=== PATIENT | female | born 1980 | race Caucasian/White ===

== ENCOUNTER → 2017-05-24 | Outpatient (CLI) | payer OTHER ==
[2016-07-30 12:46] VITALS: BP 100/44
--- NOTE | 2017-05-24 14:46 | Diagnostic Imaging Report ---
ROSIE BRANDON (ETL ARCHITECT) - OP [facility] [address] [facility].[address] [address] Report Submission Date: May 24, 2017 2:36:31 PM CDT Patient Study Name: ANDREA BOSTON Date: May 24, 2017 2:27:55 PM CDT Modality Type: CR Gender: F Description: SHOULDER : 82 Institution: [facility] Physician: ROSIE BRANDON (ETL ARCHITECT) - OP Left shoulder 3 views Clinical history pain for weeks Findings: There is no fracture or dislocation. Bone density is normal. The Impression: Negative left shoulder Electronically signed on May 24, 2017 2:36:31 PM CDT by: Saul MENENDEZ
== END ==
LOC: RAD 14:15
PROVIDERS: ATTEND Nurse Practitioner Family
DX: M25.512 Pain in left shoulder (principal)
CPT/HCPCS: 73030

== ENCOUNTER 2017-07-22 17:38 | Emergency (ER) | payer OTHER ==
[2017-07-22] MEDS ORDERED: LORATADINE 10 MG TABLET PO ONE (17:51)
[2017-07-22] MEDS ORDERED: diphenhydrAMINE HCL 50 MG/ML VIAL IM ONE (17:51)
--- NOTE | 2017-07-22 17:56 | ED Physician Documentation ---
General Adult - HISTORIAN Historian: patient - HPI Chief Complaint: General Adult Onset: hours Further Comments: yes (37 year old female patient presents with complaints of "allergic reaction". Patient states she had pizza around 1300, now feels like her throat is closing. Reported milk allergy. 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.) - ROS CONST: no problems EYES/ENT: none CVS/RESP: none GI/: none MS/SKIN/LYMPH: none NEURO/PSYCH: denies: headache - PAST HX Past History: other (GERD, depression) Allergies/Adverse Reactions: Allergies Allergy/AdvReac Type Severity Reaction Status Date / Time meperidine HCl [From Demerol] Allergy Mild Hives Verified 07/22/17 18:12 morphine Allergy Mild Hives Verified 07/22/17 18:12 amoxicillin trihydrate Allergy Verified 07/22/17 18:12 [From Augmentin] Milk Containing Products Allergy Verified 07/22/17 18:12 potassium clavulanate Allergy Verified 07/22/17 18:12 [From Augmentin] propoxyphene napsylate Allergy Verified 07/22/17 18:12 [From Darvocet-N] acetaminophen AdvReac Nausea/Vomi Verified 07/22/17 18:12 [From Darvocet-N] ting peanut AdvReac Throat Verified 07/22/17 18:12 Swelling Home Medications: Ambulatory Orders Medication Instructions Recorded Diphenoxylate HCl/Atropine 2 each PO DAILY 07/30/16 [Lomotil] Mecobalamin [B-12] 1,000 mcg SL DAILY 07/30/16 Pantoprazole Sodium [Protonix] 40 mg PO DAILY 07/30/16 Psyllium Husk [Daily Fiber] 0.52 gm PO QID 07/30/16 - SOCIAL HX Smoking History: non-smoker - FAMILY HX Family History: No - VITAL SIGNS Vital Signs: Vital Signs Temp Pulse Resp BP Pulse Ox 100/44 07/30/16 12:44 - REVIEWED ASSESSMENTS Nursing Assessment Reviewed: Yes Vitals Reviewed: Yes Progress - Progress Progress: Symptoms treated with benadryl and loratadine while in Er. Sat remained 100% ED Results Lab/Radiology - Orders Orders: ED Orders Category Date Time Status Loratadine [Claritin] Med 07/22/17 17:51 Once 10 mg PO NOW ONE diphenhydrAMINE HCL [Benadryl] Med 07/22/17 17:51 Once 50 mg IM NOW ONE General Adult Physical Exam - PHYSICAL EXAM GENERAL APPEARANCE: mild distress EENT: eye inspection normal, ENT inspection normal, pharynx normal, no signs of dehydration, DEBRA, no nystagmus, TM's nml RESPIRATORY: no resp distress, chest non-tender, breath sounds normal, other ( no stridor, no wheezing) CVS: reg rate & rhythm, heart sounds normal, equal pulses, no murmur, no gallop , PMI nml, no JVD, no friction rub, 24 ABDOMEN: soft, no organomegaly, normal bowel sounds, no abdominal bruit, no distension SKIN: normal color, warm/dry, NR, INT, PAL, DR EXTREMITIES: non-tender, normal range of motion, no evidence of injury, no edema , J, CUSTOMER ACCOUNTS ADVISOR NEURO: oriented X3, CN's nml as tested, motor nml, sensation nml, mood/affect nml Discharge Clincal Impression: Allergic reaction Qualifiers: Encounter type: initial encounter Qualified Code(s): T78.40XA - Allergy, unspecified, initial encounter Referrals: Homa Queen, PRN [Primary Care Provider] - 2 Days Additional Instructions: Continue Benadryl 25-50mg by mouth every 6 hours until symptoms resolve Take either Claritan, Allergra, or Zyrtec daily until symptoms resolve. See your primary doctor or return to the ER if you have increase shortness of breath or difficulty breathing. Condition: Stable Disposition: 01 HOME, SELF-CARE Decision to Admit: NO Decision Time: 18:06
[2017-07-22 18:25] VITALS: BP 96/58
== END 2017-07-22 18:25 | disposition home or self-care (01) ==
LOC: ED 17:38
DX: T78.40XA Allergy, unspecified, initial encounter (principal); X58.XXXA Exposure to other specified factors, initial encounter; Y93.9 Activity, unspecified; Y99.9 Unspecified external cause status
CPT/HCPCS: 96372; 99283; J1200

== ENCOUNTER 2017-08-01 09:28 | Emergency (ER) | payer OTHER ==
--- NOTE | 2017-08-01 09:47 | ED Physician Documentation ---
Nausea/Vomiting/Diarrhea - HISTORIAN Historian: patient (2 AM today) - HPI Stated Complaint: N/V/D Chief Complaint: Nausea,Vomiting,Diarrhea Additional Information: Patient started ot have some nausea and vomiting at 2 AM. Patient had a syncopal episode associated with it. Not sure how long she was on the floor. Has vomited numerous times, but has not been having any dry heaves. Has been having some diaphoresis prior to vomiting. Has also been having some diarrhea. Has 3 stools. No blood in emisis or diarrhea. No fever noted but has been having some chills. Onset: hours Context: denies: out of country travel, bad food, recent trauma Severity: mild - ROS CONST: sweating, chills. denies: fever CVS/RESP: cough, dry cough. denies: chest pain, shortness of breath GI/: denies: constipation - PAST HX Past History: other (IBS, GERDs, anxiety disorder) Allergies/Adverse Reactions: Allergies Allergy/AdvReac Type Severity Reaction Status Date / Time meperidine HCl [From Demerol] Allergy Mild Hives Verified 08/01/17 09:39 morphine Allergy Mild Hives Verified 08/01/17 09:39 amoxicillin trihydrate Allergy Verified 08/01/17 09:39 [From Augmentin] Milk Containing Products Allergy Verified 08/01/17 09:39 potassium clavulanate Allergy Verified 08/01/17 09:39 [From Augmentin] propoxyphene napsylate Allergy Verified 08/01/17 09:39 [From Darvocet-N] acetaminophen AdvReac Nausea/Vomi Verified 08/01/17 09:39 [From Darvocet-N] ting peanut AdvReac Throat Verified 08/01/17 09:39 Swelling Home Medications: Ambulatory Orders Medication Instructions Recorded Mecobalamin [B-12] 1,000 mcg SL DAILY 07/30/16 Pantoprazole Sodium [Protonix] 40 mg PO DAILY 07/30/16 Psyllium Husk [Daily Fiber] 0.52 gm PO QID 07/30/16 Ondansetron HCl Rapdis [Zofran Odt] 4 mg PO Q6 PRN #15 tab 08/01/17 - SOCIAL HX Smoking History: non-smoker Alcohol Use: none Drug Use: none - FAMILY HX Family History: none - VITAL SIGNS Vital Signs: Vital Signs Temp Pulse Resp BP Pulse Ox 97.9 F 75 19 102/65 96 08/01/17 12:00 08/01/17 12:00 08/01/17 12:00 08/01/17 12:00 08/01/17 12:00 - REVIEWED ASSESSMENTS Nursing Assessment Reviewed: Yes Vitals Reviewed: Yes Progress - Progress Progress: 11:32 Patient is less nauseated, no further diarrhea or vomiting ED Results Lab/Radiology - Lab Results Lab Results: Lab Results 08/01/17 08/01/17 10:10 10:10 WBC 9.80 K/ul K/ul (4.00-12.00) RBC 4.15 M/ul M/ul (3.90-5.20) Hgb 13.5 g/dL g/dL (12.0-16.0) Hct 38.6 % % (34.5-46.5) MCV 93.1 fl fl (80.0-100.0) MCH 32.5 pg pg (28.0-34.0) MCHC 34.9 g/dL g/dL (30.0-36.0) RDW 12.6 % % (11.3-14.3) Plt Count 273 K/mm3 K/mm3 (130-400) Seg Neutrophils % 91 % H % (39-79) Band Neutrophils % 1 % % (0-12) Lymphocytes % 5 % L % (16-50) Monocytes % 3 % % (0-11) Plt Morphology Comment Normal (NORMAL) RBC Morph Comment Normal (NORMAL) Sodium 138 mmol/L mmol/L (136-145) Potassium 3.6 mmol/L mmol/L (3.5-5.1) Chloride 101 mmol/L mmol/L (98-107) Carbon Dioxide 28 mmol/L mmol/L (22-30) BUN 22 mg/dL H mg/dL (7-17) Creatinine 0.70 mg/dL mg/dL (0.52-1.04) Estimated Creat Clear 149 Est GFR ( Amer) > 60 (60 - ) Est GFR (Non-Af Amer) > 60 (60 - ) Glucose 107 mg/dL H mg/dL (74-106) Calcium 8.8 mg/dL mg/dL (8.4-10.2) Total Bilirubin 0.4 mg/dL mg/dL (0.2-1.3) AST 26 U/L U/L (15-46) ALT 33 U/L U/L (13-69) Alkaline Phosphatase 44 U/L U/L (38-126) Total Protein 7.7 g/dL g/dL (6.3-8.2) Albumin 4.3 g/dL g/dL (3.5-5.0) Lipase 49 U/L U/L (23-300) - Orders Orders: ED Orders Category Date Time Status Place IV Lock 1T Care 08/01/17 09:57 Active CBC/PLATELET/DIFF Routine Lab 08/01/17 10:10 Completed CMP Routine Lab 08/01/17 10:10 Completed INFLUENZA A&B Routine Lab 08/01/17 09:59 Ordered LIPASE Routine Lab 08/01/17 10:10 Completed 0.9 % Sodium Chloride [Normal Saline] 1,000 ml Med 08/01/17 10:00 Discontinued IV .Q1H 0.9 % Sodium Chloride [Normal Saline] 1,000 ml Med 08/01/17 10:11 Discontinued IV .STK-MED Ondansetron HCl/Pf [Zofran 4 mg/2 ml] Med 08/01/17 09:58 Discontinued 4 mg IVP NOW ONE Nausea Physical Exam - EXAM General Appearance: alert, mild distress EENT: ENT inspection normal, pharynx normal, no signs of dehydration Neck: normal inspection, supple. No: lymphadenopathy, stiff neck Respiratory: no resp distress, chest non-tender, breath sounds normal. No: wheezes, rales, rhonchi CVS: reg rate & rhythm, heart sounds normal, equal pulses, no murmur, no gallop Abdomen: no organomegaly, tenderness (mild in the mid epigstric area), abnml bowel sounds (mildly hyperactive). No: guarding, rebound Skin: warm/dry, normal color Extremities: no edema Neuro/Psych: mood/affect nml, cognition normal Discharge Clincal Impression: Viral gastroenteritis Prescriptions: Ondansetron HCl Rapdis [Zofran Odt] 4 mg PO Q6 PRN #15 tab PRN Reason: Nausea / Vomiting Referrals: Homa Queen PRN [Primary Care Provider] - 2 Days Additional Instructions: Sip on clear liquids for the next 24 hours. Take Zofran as needed for nausea. If symptoms continue for another 72 hours to return to the ED or be seen by your primary care provider. Condition: Stable Disposition: 01 HOME, SELF-CARE Decision to Admit: NO Date of Decison to Admit: 08/01/17 Decision Time: 11:49
[2017-08-01] MEDS ORDERED: 0.9 % SODIUM CHLORIDE 1,000 ML IV ONE (10:11)
[2017-08-01] MEDS: ONDANSETRON HCL/PF 4 MG/ 2ML VIAL IVP ONE (10:13)
[2017-08-01] MEDS: 0.9 % SODIUM CHLORIDE 1,000 ML IV SCH (10:19)
[2017-08-01 10:23] LABS: MEAN CORPUSCULAR HEMOGLOBIN 32.5 pg (28.0-34.0); MEAN CORPUSCULAR VOLUME 93.1 fl (80.0-100.0)
[2017-08-01 10:38] LABS: eGFR (African) > 60; eGFR (Non-African) > 60
[2017-08-01 10:42] LABS: SEGMENTED NEUTROPHILS % 91 % (39-79)
[2017-08-01 10:43] LABS: MONOCYTES % 3 % (0-11)
[2017-08-01 12:14] VITALS: BP 102/65
[2017-08-02 07:40] LABS: APPEARANCE,URINE CLEAR (CLEAR); COLOR,URINE YELLOW (YELLOW)
[2017-08-02 07:41] LABS: OCCULT BLOOD,URINE TRACE-LYSED (NEGATIVE); PH URINE 7.5 (5.0 - 8.0); UROBILINOGEN URINE 0.2 Eu (0.2-1.0)
== END 2017-08-01 12:00 | disposition home or self-care (01) ==
LOC: ED 09:28
DX: K52.9 Noninfective gastroenteritis and colitis, unspecified (principal)
CPT/HCPCS: 80053; 81002; 83690; 85025; 87400; J2405; J7030; 96360; 96374; 99283; S1016

== ENCOUNTER 2017-12-31 18:35 | Emergency (ER) | payer OTHER ==
[2017-12-31 18:53] VITALS: BP 100/56
--- NOTE | 2017-12-31 19:02 | ED Physician Documentation ---
General Adult - HISTORIAN Historian: patient - HPI Stated Complaint: Tick bite on back Chief Complaint: Insect Bite Onset: days ago (just noticed ) Timing: still present - ROS CONST: no problems. denies: fever, chills - PAST HX Past History: none Surgeries/Procedures: other (urethral stricture dilittion, skin graft) Immunizations: referred to PCP Allergies/Adverse Reactions: Allergies Allergy/AdvReac Type Severity Reaction Status Date / Time meperidine HCl [From Demerol] Allergy Mild Hives Verified 01/17/18 12:55 morphine Allergy Mild Hives Verified 01/17/18 12:55 amoxicillin trihydrate Allergy Verified 01/17/18 12:55 [From Augmentin] Milk Containing Products Allergy Verified 01/17/18 12:55 potassium clavulanate Allergy Verified 01/17/18 12:55 [From Augmentin] propoxyphene napsylate Allergy Verified 01/17/18 12:55 [From Darvocet-N] peanut AdvReac Throat Verified 01/17/18 12:55 Swelling Home Medications: Ambulatory Orders Medication Instructions Recorded Pantoprazole Sodium [Protonix] 40 mg PO DAILY 07/30/16 Psyllium Husk [Daily Fiber] 0.52 gm PO QID PRN 07/30/16 Escitalopram Oxalate [Lexapro] 20 mg PO DAILY 12/31/17 - SOCIAL HX Smoking History: non-smoker Alcohol Use: none Drug Use: none - FAMILY HX Family History: No - VITAL SIGNS Vital Signs: Vital Signs Temp Pulse Resp BP Pulse Ox 97.9 F 73 16 100/56 99 12/31/17 18:40 12/31/17 18:40 12/31/17 18:40 12/31/17 18:40 12/31/17 18:40 - REVIEWED ASSESSMENTS Nursing Assessment Reviewed: Yes Vitals Reviewed: Yes General Adult Physical Exam - PHYSICAL EXAM GENERAL APPEARANCE: no distress NECK: normal inspection, thyroid normal, supple RESPIRATORY: no resp distress, chest non-tender, breath sounds normal CVS: reg rate & rhythm, heart sounds normal, equal pulses, no murmur ABDOMEN: soft, no organomegaly, normal bowel sounds, no abdominal bruit SKIN: other (several lesion on beack consistnet with possible insect bite. no secondary infection noted) EXTREMITIES: non-tender NEURO: oriented X3, mood/affect nml, cognition normal Discharge Clincal Impression: Insect bite Qualifiers: Encounter type: initial encounter Qualified Code(s): W57.XXXA - Bitten or stung by nonvenomous insect and other nonvenomous arthropods, initial encounter Referrals: Homa Queen PRN [Primary Care Provider] - 2 Days Additional Instructions: If area is not improving in 2 hours to start antibiotic. Avoid pressing or sqeezing the wound at this time. Disposition: 01 HOME, SELF-CARE Palliative/Comfort Care: Palliative Care Decision to Admit: NO Date of Decison to Admit: 12/31/17 Decision Time: 19:05
== END 2017-12-31 19:20 | disposition home or self-care (01) ==
LOC: ED 18:35
DX: L98.9 Disorder of the skin and subcutaneous tissue, unspecified (principal); W57.XXXA Bitten or stung by nonvenomous insect and other nonvenomous arthropods, initial encounter; Y92.9 Unspecified place or not applicable; Y93.9 Activity, unspecified; Y99.9 Unspecified external cause status
CPT/HCPCS: 99282

== ENCOUNTER 2018-01-17 12:33 | Emergency (ER) | payer OTHER ==
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
[2018-01-17 13:15] LABS: BASOPHILS % 0.5 (0.0-1.5); EOSINOPHILS % 1.8 % (0.0-6.8); MEAN CORPUSCULAR HEMOGLOBIN 30.9 pg (28.0-34.0); MEAN CORPUSCULAR VOLUME 94.8 fl (80.0-100.0); MONOCYTES % 4.3 % (0.0-11.0); NEUTROPHILS # 4.6 # k/uL (1.4-7.7)
[2018-01-17 13:32] LABS: eGFR (Non-African) > 60
[2018-01-17 13:49] LABS: CANNABINOIDS NEGATIVE ng/mL (< 50); METHYLENEDIOXYMETHAMPHETAMINE NEGATIVE ng/mL (<500)
[2018-01-17 14:44] VITALS: BP 116/71
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
== END 2018-01-17 14:30 | disposition home or self-care (01) ==
LOC: ED 12:33
DX: S01.01XA Laceration without foreign body of scalp, initial encounter (principal); V87.7XXA Person injured in collision between other specified motor vehicles (traffic), initial encounter; Y92.9 Unspecified place or not applicable; Y93.9 Activity, unspecified; Y99.9 Unspecified external cause status
CPT/HCPCS: 12001; 70450; 72125; 80053; 80320; 80377; 85025; 85610; G0480; G0481; S1016

== ENCOUNTER 2018-04-04 17:16 | Emergency (ER) | payer OTHER ==
[2018-04-04] MEDS ORDERED: NEOMYCIN/BACITRACIN/POLYMYXINB 1 EACH OINT.PACK TP ONE (17:35)
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
[2018-04-04 18:18] LABS: EOSINOPHILS % 1.6 % (0.0-6.8); MONOCYTES % 4.7 % (0.0-11.0)
[2018-04-04 18:19] LABS: BASOPHILS % 0.4 (0.0-1.5)
[2018-04-04 18:25] LABS: eGFR (African) > 60; eGFR (Non-African) > 60
[2018-04-04 19:58] VITALS: BP 98/53
--- NOTE | 2018-04-04 20:14 | Diagnostic Imaging Report ---
UMBERTO MACIAS [facility] [address] [facility] [address] [id number] Report Submission Date: Apr 04, 2018 6:05:03 PM CDT Patient Study Name: ANDREA BOSTON Date: Apr 04, 2018 5:43:19 PM CDT Modality Type: DX Gender: F Description: LOWER EXTREMITY : 82 Institution: [facility] Physician: UMBERTO MACIAS Left knee History: Pain. Fall. AP and lateral projections of the left knee demonstrate no osseous abnormality and no joint effusion. Impression: No osseous abnormality. Electronically signed on Apr 04, 2018 6:05:03 PM CDT by: Nela MENENDEZ
--- NOTE | 2018-04-04 20:15 | Diagnostic Imaging Report ---
UMBERTO MACIAS [facility] [address] [facility] [address] [place] [address]. [id number] Report Submission Date: Apr 04, 2018 6:12:04 PM CDT Patient Study Name: ANDREA BOSTON Date: Apr 04, 2018 5:48:58 PM CDT Modality Type: DX Gender: F Description: UPPER EXTREMITY : 82 Institution: [facility] Physician: UMBERTO MACIAS Left hand History: Status post fall Three views of the left hand were obtained which demonstrate the presence of an IV. There is no evidence for acute fracture or dislocation. Impression: No evidence for acute fracture or dislocation. Electronically signed on Apr 04, 2018 6:12:04 PM CDT by: Nela MENENDEZ
[2018-04-05 05:51] LABS: APPEARANCE,URINE CLEAR (CLEAR); COLOR,URINE YELLOW (YELLOW); OCCULT BLOOD,URINE NEGATIVE (NEGATIVE); UROBILINOGEN URINE 0.2 Eu (0.2-1.0)
[2018-04-05 05:57] LABS: MEAN CORPUSCULAR HEMOGLOBIN 31.6 pg (28.0-34.0)
[2018-04-05 05:58] LABS: NEUTROPHILS # 3.8 # k/uL (1.4-7.7)
== END 2018-04-04 19:00 | disposition home or self-care (01) ==
LOC: ED 17:16
DX: S80.219A Abrasion, unspecified knee, initial encounter (principal); M79.645 Pain in left finger(s); F41.9 Anxiety disorder, unspecified; W19.XXXA Unspecified fall, initial encounter; Y92.9 Unspecified place or not applicable; Y93.9 Activity, unspecified; Y99.9 Unspecified external cause status
CPT/HCPCS: 73130; 73560; 80053; 80320; 81002; 85025; 99283; G0480; S1016

== ENCOUNTER 2019-03-29 11:34 | Emergency (ER) | payer OTHER ==
--- NOTE | 2019-03-29 11:40 | ED Physician Documentation ---
Syncope/Near Syncope - HISTORIAN Historian: patient - HPI Stated Complaint: syncope Chief Complaint: Syncope Witnessed: Yes Witnessed By: friend Position at Time of Episode: sitting Symptoms Prior to Episode: light-headed Character of Events(s): became unresponsive, collapsed, felt faint Symptoms after Event: other (no symptoms after she states "I just feel stupid" ) Location of Injury: none Associated Symptoms: dizziness Further Comments: yes (she is currently being worked up for an "inner ear issue" that could cause the dizziness and passint out spells she has. She states usually they are associated with dehydration or illness. She does recall feeling dizzy at [employer] post dizziness is usually when she passes out. She states she just didnt try to relax and then she reports she passed out. She has had this happen in the past. She denies any head injury. No further pain. No other complaints) - ROS CONST: denies: recent illness, fever EYES/ENT: denies: problems with vision MS/SKIN/LYMPH: denies: joint pain NEURO/PSYCH: anxiety - PAST HX Cardiac Disease: none Immunizations: UTD Allergies/Adverse Reactions: Allergies Allergy/AdvReac Type Severity Reaction Status Date / Time meperidine HCl [From Demerol] Allergy Mild Hives Verified 03/29/19 11:44 morphine Allergy Mild Hives Verified 03/29/19 11:44 amoxicillin trihydrate Allergy Verified 03/29/19 11:44 [From Augmentin] Milk Containing Products Allergy Verified 03/29/19 11:44 potassium clavulanate Allergy Verified 03/29/19 11:44 [From Augmentin] propoxyphene napsylate Allergy Verified 03/29/19 11:44 [From Darvocet-N] peanut AdvReac Throat Verified 03/29/19 11:44 Swelling Home Medications: Ambulatory Orders Medication Instructions Recorded Pantoprazole Sodium [Protonix] 40 mg PO DAILY 07/30/16 Psyllium Husk [Daily Fiber] 0.52 gm PO QID PRN 07/30/16 Escitalopram Oxalate [Lexapro] 20 mg PO DAILY 12/31/17 - SOCIAL HX Smoking History: non-smoker Alcohol Use: none Drug Use: none - FAMILY HX Family History: none - VITAL SIGNS Vital Signs: Vital Signs Temp Pulse Resp BP Pulse Ox 98.0 F 77 20 107/71 99 03/29/19 11:40 03/29/19 12:15 03/29/19 12:15 03/29/19 12:15 03/29/19 12:15 - REVIEWED ASSESSMENTS Nursing Assessment Reviewed: Yes Vitals Reviewed: Yes Progress - Progress Progress: 1210: observation she did not have any further complaints DG Syncope Physical Exam - Physical Exam General Appearance: no acute distress, alert EENT: nml eye inspection, PERRL Neck/Back: neck supple Respiratory: no resp distress, chest non-tender, breath sounds normal CVS: reg rate & rhythm, heart sounds normal, equal pulses Abdomen: non-tender Skin: warm/dry, normal color Extremities: non-tender, normal range of motion, no evidence of injury, no edema - Neuro/Psych Higher Functions: alert, oriented x3 Cranial Nerves: nml as tested Cerebellar: nml as tested Sensorimotor: nml motor response Discharge Clincal Impression: Syncope and collapse Referrals: Homa Queen PRN [Primary Care Provider] - 2 Days Comments: 1. Continue meds and follow up with ENT 2. Drink plenty of fluids 3. Return to ER for any increasing concerns Condition: Stable Disposition: 01 HOME, SELF-CARE Decision to Admit: NO Date of Decison to Admit: 03/29/19 Decision Time: 12:15
[2019-03-29 12:16] VITALS: BP 107/71
== END 2019-03-29 12:16 | disposition home or self-care (01) ==
LOC: ED 11:34
DX: R55 Syncope and collapse (principal)
CPT/HCPCS: 99281; 99283